=== PATIENT | female | born 2000 | race American Indian/Alaskan Native ===

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

== ENCOUNTER 2019-06-03 10:34 | Emergency (ER) | payer BC ==
[2019-06-03 10:48] VITALS: BP 124/78
[2019-06-03] MEDS ORDERED: ONDANSETRON 4 MG ODT TAB PO ONE (10:48)
--- NOTE | 2019-06-03 11:39 | Emergency Department Report ---
Vomiting/Diarrhea - HPI Chief Complaint: Nausea/Vomiting/Diarrhea Stated Complaint: VOMIT/ADELAIDE/BACK PAIN/COUGH Time Seen by Provider: 06/03/19 11:35 Duration: 1 Day Severity: mild Nausea/Vomiting Severity: Mild Diarrhea Severity: None Pain Location: Generalized Pain Severity: Mild Symptoms: Yes Able to Tolerate Fluids, Yes Recent Unusual Foods (soup vegetable from restaurant), No Watery Diarrhea, No Bloody diarrhea, No Fever, No Recent Untreated Water, No Recent use of Antibiotics, No Family w/ Similar Symptoms, No Contacts w/ Similar Symptoms, No Rash, No Hematuria, No Recent URI Symptoms Other History: This is a 19-year-old female presents to ED complaining of nausea vomiting that began last night. Patient states last night she was at a friend's house and had some vegetable stew that was blood from restaurant. She states that she had been coughing and a couple of days probably beginning of symptoms. Patient states cough and was intermittent nonproductive. Patient states the cough is worse and is causing her to have some shortness of breath. Patient denies any history of asthma ED Review of Systems ROS: Stated complaint: VOMIT/ADELAIDE/BACK PAIN/COUGH Other details as noted in HPI Comment: All other systems reviewed and negative ED Past Medical Hx - Past Medical History Previous Medical History?: No - Surgical History Past Surgical History?: No - Social History Smoking Status: Never Smoker Substance Use Type: Marijuana - Medications Home Medications: Home Medications Medication Instructions Recorded Confirmed Last Taken Type ALBUTEROL Inhaler (OR & NICU) 2 puff IH QID PRN #8.5 gram 06/03/19 Unknown Rx [ProAir HFA Inhaler] Benzonatate [Tessalon Perles] 100 mg PO Q8HR #20 capsule 06/03/19 Unknown Rx Ondansetron [Zofran ODT TAB] 8 mg PO Q12HR #20 tab.rapdis 06/03/19 Unknown Rx Vomiting Diarrhea Exam - Exam General: Vital signs noted. No distress. Alert and acting appropriately. HEENT: Yes Moist Mucous Membranes, No Pharyngeal Erythema, No Pharyngeal Exudates, No Rhinorrhea, No Conjuctival Injection, No Frontal Tenderness, No Maxillary Tenderness Neck: No Adenopathy, No Rigidity Lungs: Yes Clear Lung Sounds, Yes Good Air Exchange, No Wheezes, No Stridor, No Cough, No Nasal Flaring, No Retractions, No Use of Accessory Muscles Heart exam: Regular: Yes, Murmur: No, Tachycardia: No Abdomen: Tenderness: No, Peritoneal Signs: No, Distention: No, Hyperactive Bowel sounds: No Skin exam: Rash: No, Edema: No, Normal turgor: Yes Neurologic: Alert and oriented, no deficits. Musculoskeletal: Unremarkable. ED Course Vital Signs 06/03/19 10:44 Temperature 98.7 F Pulse Rate 85 Respiratory 22 Rate Blood Pressure 124/78 O2 Sat by Pulse 99 Oximetry ED Medical Decision Making - Lab Data Result diagrams: 06/03/19 11:29 06/03/19 11:29 Laboratory Last Values WBC 3.4 K/mm3 (4.5-11.0) L 06/03/19 11:29 RBC 4.86 M/mm3 (3.65-5.03) 06/03/19 11:29 Hgb 14.0 gm/dl (10.1-14.3) 06/03/19 11:29 Hct 40.2 % (30.3-42.9) 06/03/19 11:29 MCV 83 fl (79-97) 06/03/19 11:29 MCH 29 pg (28-32) 06/03/19 11:29 MCHC 35 % (30-34) H 06/03/19 11:29 RDW 14.0 % (13.2-15.2) 06/03/19 11:29 Plt Count 353 K/mm3 (140-440) 06/03/19 11:29 [place] % (Auto) 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 06/03/19 11:29 Add Manual Diff Complete 06/03/19 11:29 Total Counted 100 06/03/19 11:29 Seg Neuts % (Manual) 36.0 % (40.0-70.0) L 06/03/19 11:29 Band Neutrophils % 1.0 % 06/03/19 11:29 Lymphocytes % (Manual) 34.0 % (13.4-35.0) 06/03/19 11:29 Reactive Lymphs % (Man) 4.0 % 06/03/19 11:29 Monocytes % (Manual) 18.0 % (0.0-7.3) H 06/03/19 11:29 Eosinophils % (Manual) 6.0 % (0.0-4.3) H 06/03/19 11:29 Basophils % (Manual) 1.0 % (0.0-1.8) 06/03/19 11:29 Metamyelocytes % 0 % 06/03/19 11:29 Myelocytes % 0 % 06/03/19 11:29 Promyelocytes % 0 % 06/03/19 11:29 Blast Cells % 0 % 06/03/19 11:29 Nucleated RBC % Not Reportable 06/03/19 11:29 Seg Neutrophils # Man 1.2 K/mm3 (1.8-7.7) L 06/03/19 11:29 Band Neutrophils # 0.0 K/mm3 06/03/19 11:29 Lymphocytes # (Manual) 1.2 K/mm3 (1.2-5.4) 06/03/19 11:29 Abs React Lymphs (Man) 0.1 K/mm3 06/03/19 11:29 Monocytes # (Manual) 0.6 K/mm3 (0.0-0.8) 06/03/19 11:29 Eosinophils # (Manual) 0.2 K/mm3 (0.0-0.4) 06/03/19 11:29 Basophils # (Manual) 0.0 K/mm3 (0.0-0.1) 06/03/19 11:29 Metamyelocytes # 0.0 K/mm3 06/03/19 11:29 Myelocytes # 0.0 K/mm3 06/03/19 11:29 Promyelocytes # 0.0 K/mm3 06/03/19 11:29 Blast Cells # 0.0 K/mm3 06/03/19 11:29 WBC Morphology Not Reportable 06/03/19 11:29 Hypersegmented Neuts Not Reportable 06/03/19 11:29 Hyposegmented Neuts Not Reportable 06/03/19 11:29 Hypogranular Neuts Not Reportable 06/03/19 11:29 Smudge Cells Not Reportable 06/03/19 11:29 Toxic Granulation Not Reportable 06/03/19 11:29 Toxic Vacuolation Not Reportable 06/03/19 11:29 Dohle Bodies Not Reportable 06/03/19 11:29 Pelger-Huet Anomaly Not Reportable 06/03/19 11:29 Jono Rods Not Reportable 06/03/19 11:29 Platelet Estimate Consistent w auto 06/03/19 11:29 Clumped Platelets Not Reportable 06/03/19 11:29 Plt Clumps, EDTA Not Reportable 06/03/19 11:29 Large Platelets Not Reportable 06/03/19 11:29 Giant Platelets Not Reportable 06/03/19 11:29 Platelet Satelliting Not Reportable 06/03/19 11:29 Plt Morphology Comment Not Reportable 06/03/19 11:29 RBC Morphology Normal 06/03/19 11:29 Dimorphic RBCs Not Reportable 06/03/19 11:29 Polychromasia Not Reportable 06/03/19 11:29 Hypochromasia Not Reportable 06/03/19 11:29 Poikilocytosis Not Reportable 06/03/19 11:29 Anisocytosis Not Reportable 06/03/19 11:29 Microcytosis Not Reportable 06/03/19 11:29 Macrocytosis Not Reportable 06/03/19 11:29 Spherocytes Not Reportable 06/03/19 11:29 Pappenheimer Bodies Not Reportable 06/03/19 11:29 Sickle Cells Not Reportable 06/03/19 11:29 Target Cells Not Reportable 06/03/19 11:29 Tear Drop Cells Not Reportable 06/03/19 11:29 Ovalocytes Not Reportable 06/03/19 11:29 Helmet Cells Not Reportable 06/03/19 11:29 Emerson-Owings Bodies Not Reportable 06/03/19 11:29 [place] Rings Not Reportable 06/03/19 11:29 Margaret Cells Not Reportable 06/03/19 11:29 Bite Cells Not Reportable 06/03/19 11:29 Crenated Cell Not Reportable 06/03/19 11:29 Elliptocytes Not Reportable 06/03/19 11:29 Acanthocytes (Spur) Not Reportable 06/03/19 11:29 Rouleaux Not Reportable 06/03/19 11:29 Hemoglobin C Crystals Not Reportable 06/03/19 11:29 Schistocytes Not Reportable 06/03/19 11:29 Malaria parasites Not Reportable 06/03/19 11:29 Dwayne Bodies Not Reportable 06/03/19 11:29 Hem Pathologist Commnt No 06/03/19 11:29 Sodium 138 mmol/L (137-145) 06/03/19 11:29 Potassium 4.3 mmol/L (3.6-5.0) 06/03/19 11:29 Chloride 101.4 mmol/L (98-107) 06/03/19 11:29 Carbon Dioxide 21 mmol/L (22-30) L 06/03/19 11:29 Anion Gap 20 mmol/L 06/03/19 11:29 BUN 13 mg/dL (7-17) 06/03/19 11:29 Creatinine 0.6 mg/dL (0.7-1.2) L 06/03/19 11:29 Estimated GFR > 60 ml/min 06/03/19 11:29 BUN/Creatinine Ratio 22 % 06/03/19 11:29 Glucose 85 mg/dL (65-100) 06/03/19 11:29 Calcium 9.8 mg/dL (8.4-10.2) 06/03/19 11:29 Total Bilirubin 0.40 mg/dL (0.1-1.2) 06/03/19 11:29 AST 21 units/L (5-40) 06/03/19 11:29 ALT 15 units/L (7-56) 06/03/19 11:29 Alkaline Phosphatase 88 units/L (35-129) 06/03/19 11:29 Total Protein 7.2 g/dL (6.3-8.2) 06/03/19 11:29 Albumin 4.5 g/dL (3.9-5) 06/03/19 11:29 Albumin/Globulin Ratio 1.7 % 06/03/19 11:29 Urine Color Yellow (Yellow) 06/03/19 11:23 Urine Turbidity Cloudy (Clear) 06/03/19 11:23 Urine pH 6.0 (5.0-7.0) 06/03/19 11:23 Ur Specific [place] 1.031 (1.003-1.030) H 06/03/19 11:23 Urine Protein 30 mg/dl mg/dL (Negative) 06/03/19 11:23 Urine Glucose (UA) Neg mg/dL (Negative) 06/03/19 11:23 Urine Ketones Tr mg/dL (Negative) 06/03/19 11:23 Urine Blood Neg (Negative) 06/03/19 11:23 Urine Nitrite Neg (Negative) 06/03/19 11:23 Urine Bilirubin Neg (Negative) 06/03/19 11:23 Urine Urobilinogen < 2.0 mg/dL (<2.0) 06/03/19 11:23 Ur Leukocyte Esterase Tr (Negative) 06/03/19 11:23 Urine WBC (Auto) 5.0 /HPF (0.0-6.0) 06/03/19 11:23 Urine RBC (Auto) 3.0 /HPF (0.0-6.0) 06/03/19 11:23 U Epithel Cells (Auto) 25.0 /HPF (0-13.0) H 06/03/19 11:23 Urine Bacteria (Auto) 1+ /HPF (Negative) 06/03/19 11:23 Urine Mucus 3+ /HPF 06/03/19 11:23 Urine HCG, Qual Negative (Negative) 06/03/19 11:23 - Radiology Data Radiology results: report reviewed, image reviewed cc: RENEE BUSBY Fluoro Time In Minutes: CHEST 2 VIEWS INDICATION / CLINICAL INFORMATION: cp, cough. Cough for one week with nausea and vomiting for one day. COMPARISON: None available. FINDINGS: SUPPORT DEVICES: None. HEART / MEDIASTINUM: No significant abnormality. LUNGS / PLEURA: No significant pulmonary or pleural abnormality. No pneumothorax. ADDITIONAL FINDINGS: No significant additional findings. IMPRESSION: 1. No acute findings. Signer Name: Lalito Garcia MD Signed: 06/03/2019 1:06 PM Workstation Name: [id number] Transcribed By: DT Dictated By: Ricki Garcia MD Electronically Authenticated By: Ricki Garcia MD Signed Date/Time: 06/03/19 1306 - Medical Decision Making 19-year-old female presents with gastroenteritis Patient received medication in the ED. CBC CMP and urinalysis and test obtained Chest x-ray obtained. Chest x-ray shows report. Vital signs are normal patient is in no acute distress. Discussed f/u with pcp in 3-5 days Critical care attestation.: If time is entered above; I have spent that time in minutes in the direct care of this critically ill patient, excluding procedure time. ED Disposition Clinical Impression: Gastroenteritis Disposition: DC-01 TO HOME OR SELFCARE Is pt being admited?: No Does the pt Need Aspirin: No Condition: Stable Instructions: Gastroenteritis (ED), Acute Nausea and Vomiting (ED), Anxiety (ED) Additional Instructions: Make sure to follow up with the primary care physician as discussed. Take all your medications as you've been prescribed. If you have any worsening symptoms or develop new symptoms please return to ED immediately. Prescriptions: ALBUTEROL Inhaler (OR & NICU) [ProAir HFA Inhaler] 2 puff IH QID PRN #8.5 gram PRN Reason: Shortness Of Breath Benzonatate [Tessalon Perles] 100 mg PO Q8HR #20 capsule Ondansetron [Zofran ODT TAB] 8 mg PO Q12HR #20 tab.rapdis Referrals: [facility] [Outside] - 3-5 Days [facility] [Outside] - 3-5 Days Forms: Work/School Release Form(ED) Time of Disposition: 13:30
[2019-06-03 11:48] LABS: Bacteria,Urine 1+ /HPF (Negative); Bilirubin,Urine NEG (Negative); Blood,Urine NEG (Negative); Color,Urine Yellow (Yellow); Mucus,Urine 3+ /HPF; Urobilinogen,Urine < 2.0 mg/dL (<2.0)
[2019-06-03] MEDS ORDERED: METOCLOPRAMIDE 10 MG TAB PO ONE (12:02)
[2019-06-03] MEDS ORDERED: diphenhydrAMINE 25 MG CAP PO ONE (12:02)
[2019-06-03 12:05] LABS: Hematocrit 40.2 % (30.3-42.9); Mean Corpuscular HGB Conc 35 % (30-34); Mean Corpuscular Volume 83 fl (79-97); Platelet Count 353 K/mm3 (140-440); Red Blood Count 4.86 M/mm3 (3.65-5.03)
[2019-06-03 12:38] LABS: Alanine Aminotransferase 15 units/L (7-56); Albumin 4.5 g/dL (3.9-5); BUN/Creatinine Ratio 22; Blood Urea Nitrogen 13 mg/dL (7-17); Calcium 9.8 mg/dL (8.4-10.2); Hemolysis Index 22
[2019-06-03 12:43] LABS: HCG Qualitative,Urine Negative (Negative)
[2019-06-03 12:50] LABS: Platelet Estimate Consistent w Auto; RBC Morphology Normal; Total Cells Counted 100
--- NOTE | 2019-06-03 13:11 | XRay Report ---
CHEST 2 VIEWS INDICATION / CLINICAL INFORMATION: cp, cough. Cough for one week with nausea and vomiting for one day. COMPARISON: None available. FINDINGS: SUPPORT DEVICES: None. HEART / MEDIASTINUM: No significant abnormality. LUNGS / PLEURA: No significant pulmonary or pleural abnormality. No pneumothorax. ADDITIONAL FINDINGS: No significant additional findings. IMPRESSION: 1. No acute findings. Signer Name: Lalito Garcia MD Signed: 06/03/2019 1:06 PM Workstation Name: [id number]
== END 2019-06-03 13:40 | disposition home or self-care (01) ==
LOC: ED 10:34
DX: K52.9 Noninfective gastroenteritis and colitis, unspecified (principal); F12.10 Cannabis abuse, uncomplicated; Z79.899 Other long term (current) drug therapy; Z91.018 Allergy to other foods
CPT/HCPCS: 36415; 71046; 80053; 81001; 81025; 85007; 85025; Q0162

== ENCOUNTER 2019-06-23 22:16 | Emergency (ER) | payer BC ==
[2019-06-24] MEDS ORDERED: ONDANSETRON 4 MG ODT TAB PO ONE (00:56)
[2019-06-24] MEDS ORDERED: CYCLOBENZAPRINE 10 MG TAB PO ONE (00:56)
[2019-06-24] MEDS ORDERED: IBUPROFEN 800 MG TAB PO ONE (00:56)
[2019-06-24] MEDS ORDERED: predniSONE 20 MG TAB PO ONE (00:56)
--- NOTE | 2019-06-24 01:27 | XRay Report ---
EXAMINATION: Right rib radiograph series with PA chest radiograph, 06/24/2019 CLINICAL INFORMATION: Right rib pain. No history of trauma. COMPARISON: Chest radiograph, 06/03/2019 FINDINGS: No displaced right-sided rib fractures are visualized. The accompanying PA chest radiograph demonstrates no evidence of acute cardiopulmonary process. IMPRESSION: No radiographic evidence of displaced right rib fractures. Signer Name: Carlotta Roman MD Signed: 06/24/2019 1:23 AM Workstation Name: [employer]
[2019-06-24 02:27] LABS: Bacteria,Urine 1+ /HPF (Negative); Bilirubin,Urine NEG (Negative); Blood,Urine NEG (Negative); Color,Urine Yellow (Yellow); Mucus,Urine FEW /HPF; Protein,Urine <15 mg/dL mg/dL (Negative); Urobilinogen,Urine < 2.0 mg/dL (<2.0)
[2019-06-24 02:32] LABS: HCG Qualitative,Urine Negative (Negative)
--- NOTE | 2019-06-24 02:55 | Emergency Department Report ---
ED Back Pain/Injury HPI - General Chief Complaint: Back Pain/Injury Stated Complaint: VOMITING RIB AND SPINE PAIN Source: patient Limitations: No Limitations - History of Present Illness Initial Comments: Patient is a 19-year-old -[place] female in no past medical history presents to the ED recombinant acute onset persistent nasal and sinus congestion, dry cough, right-sided pleuritic chest pain, low back pain, subjective fever and chills, diffuse body aches and pains for the last 2 days. Patient states that her girlfriend has had similar symptoms. Patient denies dizziness, sore throat, abdominal pain, shortness of breath, nausea, vomiting, diarrhea, dysuria, urinary frequency and urgency or vaginal bleeding and syncope MD Complaint: back pain (lower ), other (right rib pain; dry cough; pleuritic chest pain; nasal and sinus congestion) -: Sudden, days(s) (2) Similar Symptoms Previously: Yes Place: home Radiation: none Severity: severe Severity scale (0 -10): 7 Quality: sharp, aching Consistency: constant Improves With: none Worsens With: none Context: unknown Associated Symptoms: denies other symptoms, cough, fever/chills, headaches, loss of appetite, malaise. denies: confusion, weakness, numbness, difficulty urinating, diaphoresis, incontinence, constipation, abdominal pain, nausea/vomiting, rash, seizure, shortness of breath, syncope, other - Related Data Previous Rx's Medication Instructions Recorded Last Taken Type Albuterol INH(or & Nicu Only) 2 puff IH QID PRN #8.5 gram 06/03/19 Unknown Rx [ProAir HFA Inhaler] Benzonatate [Tessalon Perles] 100 mg PO Q8HR #20 capsule 06/03/19 Unknown Rx Ondansetron [Zofran ODT TAB] 8 mg PO Q12HR #20 tab.rapdis 06/03/19 Unknown Rx Azithromycin [Zithromax Z-MARYA] 250 mg PO DAILY #6 tablet 06/24/19 Unknown Rx Benzonatate [Tessalon Perles] 100 mg PO Q8HR #30 capsule 06/24/19 Unknown Rx Cyclobenzaprine [Flexeril] 10 mg PO TID PRN #15 tablet 06/24/19 Unknown Rx Ibuprofen [Motrin] 800 mg PO Q8HR PRN #24 tablet 06/24/19 Unknown Rx methylPREDNISolone [Medrol 4MG 4 mg PO DAILY #21 tab.ds.pk 06/24/19 Unknown Rx DOSEPAK (21 tabs)] Allergies Allergy/AdvReac Type Severity Reaction Status Date / Time [place] And Derivatives Allergy Angioedema Verified 06/03/19 10:36 ED Review of Systems ROS: Stated complaint: VOMITING RIB AND SPINE PAIN Other details as noted in HPI Constitutional: denies: chills, fever Eyes: denies: eye pain, eye discharge, vision change ENT: congestion. denies: ear pain, throat pain Respiratory: cough. denies: shortness of breath, wheezing Cardiovascular: chest pain (right rib pain). denies: palpitations Endocrine: no symptoms reported Gastrointestinal: denies: abdominal pain, nausea, diarrhea Genitourinary: denies: urgency, dysuria, discharge Musculoskeletal: back pain, arthralgia, myalgia. denies: joint swelling Skin: denies: rash, lesions Neurological: headache. denies: weakness, paresthesias Psychiatric: denies: anxiety, depression Hematological/Lymphatic: denies: easy bleeding, easy bruising ED Past Medical Hx - Past Medical History Previous Medical History?: No - Surgical History Past Surgical History?: No - Social History Smoking Status: Current Every Day Smoker Substance Use Type: Marijuana - Medications Home Medications: Home Medications Medication Instructions Recorded Confirmed Last Taken Type Albuterol INH(or & Nicu Only) 2 puff IH QID PRN #8.5 gram 06/03/19 Unknown Rx [ProAir HFA Inhaler] Benzonatate [Tessalon Perles] 100 mg PO Q8HR #20 capsule 06/03/19 Unknown Rx Ondansetron [Zofran ODT TAB] 8 mg PO Q12HR #20 tab.rapdis 06/03/19 Unknown Rx Azithromycin [Zithromax Z-MARYA] 250 mg PO DAILY #6 tablet 06/24/19 Unknown Rx Benzonatate [Tessalon Perles] 100 mg PO Q8HR #30 capsule 06/24/19 Unknown Rx Cyclobenzaprine [Flexeril] 10 mg PO TID PRN #15 tablet 06/24/19 Unknown Rx Ibuprofen [Motrin] 800 mg PO Q8HR PRN #24 tablet 06/24/19 Unknown Rx methylPREDNISolone [Medrol 4MG 4 mg PO DAILY #21 tab.ds.pk 06/24/19 Unknown Rx DOSEPAK (21 tabs)] ED Physical Exam - General Limitations: No Limitations General appearance: alert, in no apparent distress - Head Head exam: Present: atraumatic, normocephalic, normal inspection - Eye Eye exam: Present: normal appearance, PERRL, EOMI Pupils: Present: normal accommodation - ENT ENT exam: Present: normal exam, normal orophraynx, mucous membranes moist, TM's normal bilaterally, normal external ear exam, other (grossly congested nasal passages) - Neck Neck exam: Present: normal inspection, full ROM. Absent: tenderness - Respiratory Respiratory exam: Present: normal lung sounds bilaterally, chest wall tenderness (palpable right lateral rib and chest wall tenderness). Absent: respiratory distress, wheezes, rales, rhonchi, accessory muscle use, decreased breath sounds - Cardiovascular Cardiovascular Exam: Present: regular rate, normal rhythm. Absent: systolic murmur, diastolic murmur, rubs, gallop - GI/Abdominal GI/Abdominal exam: Present: soft, normal bowel sounds. Absent: tenderness, hyperactive bowel sounds - Extremities Exam Extremities exam: Present: normal inspection, full ROM, normal capillary refill - Back Exam Back exam: Present: normal inspection, full ROM, tenderness (palpable lumbosacral paraspinal musculoskeletal tenderness), muscle spasm, paraspinal tenderness - Neurological Exam Neurological exam: Present: alert, oriented X3, CN II-XII intact, normal gait, reflexes normal - Psychiatric Psychiatric exam: Present: normal affect, normal mood - Skin Skin exam: Present: warm, dry, intact, normal color. Absent: rash ED Course Vital Signs 06/23/19 22:25 Temperature 97.9 F Pulse Rate 75 Respiratory 18 Rate Blood Pressure 116/59 O2 Sat by Pulse 99 Oximetry ED Medical Decision Making - Radiology Data Radiology results: report reviewed, image reviewed Right rib and chest x-ray shows no acute rib fractures or any cardiopulmonary abnormalities, pneumonitis, pneumothorax or pleural effusion - Medical Decision Making This is a 19-year-old female who presented to the ED with flulike symptoms characterized by nasal and sinus congestion, pleuritic chest pain, dry cough, low back pain and diffuse body aches and pains for 2 days. In the ED, patient is alert and oriented 3 and is not in distress. Urinalysis is nonactionable and right rib and chest x-ray showed no acute cardiopulmonary abnormalities or pneumonitis or pneumothorax, or pleural effusion. Patient was treated for pain in the ED and discharged home on medications and advised to follow-up with her primary care physician in 7-10 days for reevaluation or return to the ED immediately if symptoms get worse. - Differential Diagnosis Flu like; URI; Bronchitis; Pneumonia; UTI Critical care attestation.: If time is entered above; I have spent that time in minutes in the direct care of this critically ill patient, excluding procedure time. ED Disposition Clinical Impression: Spasm of muscle of lower back, Acute upper respiratory infection Acute bronchitis Qualifiers: Bronchitis organism: other organism Qualified Code(s): J20.8 - Acute bronchitis due to other specified organisms Muscle strain of chest wall Qualifiers: Encounter type: initial encounter Qualified Code(s): S29.011A - Strain of muscle and tendon of front wall of thorax, initial encounter Disposition: TO HOME OR SELFCARE Is pt being admited?: No Does the pt Need Aspirin: No Condition: Stable Instructions: Acute Bronchitis (ED), Muscle Strain (ED), Muscle Spasm (ED), Upper Respiratory Infection (ED) Additional Instructions: Take medications with food, drink plenty of fluids and follow up with your primary care physician in 5-7 days for reevaluation. Return to ED immediately if symptoms get worse. Prescriptions: Cyclobenzaprine [Flexeril] 10 mg PO TID PRN #15 tablet PRN Reason: Muscle Spasm methylPREDNISolone [Medrol 4MG DOSEPAK (21 tabs)] 4 mg PO DAILY #21 tab.ds.pk Ibuprofen [Motrin] 800 mg PO Q8HR PRN #24 tablet PRN Reason: Pain , Severe (7-10) Benzonatate [Tessalon Perles] 100 mg PO Q8HR #30 capsule Azithromycin [Zithromax Z-MARYA] 250 mg PO DAILY #6 tablet Referrals: [facility] [Outside] - 3-5 Days Forms: Work/School Release Form(ED) Time of Disposition: 02:55 Print Language: YEMENI
[2019-06-24 03:17] VITALS: BP 118/67
== END 2019-06-24 03:05 | disposition home or self-care (01) ==
LOC: ED 22:16
DX: S29.011A Strain of muscle and tendon of front wall of thorax, initial encounter (principal); M62.830 Muscle spasm of back; J06.9 Acute upper respiratory infection, unspecified; J20.9 Acute bronchitis, unspecified; F12.10 Cannabis abuse, uncomplicated; F17.200 Nicotine dependence, unspecified, uncomplicated; Z91.018 Allergy to other foods; X58.XXXA Exposure to other specified factors, initial encounter; Y93.89 Activity, other specified; Y92.89 Other specified places as the place of occurrence of the external cause; Y99.8 Other external cause status
CPT/HCPCS: 71101; 81001; 81025; 99284; J7512; Q0162

== ENCOUNTER 2021-02-01 11:02 | Emergency (ER) | payer BC ==
[2021-02-01 13:15] VITALS: BP 116/70
[2021-02-01] MEDS ORDERED: SODIUM CHLORIDE IRRI 500 ML 500 ML IR ONE (22:47)
== END 2021-02-01 15:00 | disposition left against medical advice (07) ==
LOC: ED 11:02
DX: R52 Pain, unspecified (principal); Z53.21 Procedure and treatment not carried out due to patient leaving prior to being seen by health care provider

== ENCOUNTER 2021-02-24 21:15 | Emergency (ER) | payer SELFPAY | END 2021-02-25 05:23 | disposition home or self-care (01) | LOC: ED 21:15 | DX: Z00.8 Encounter for other general examination (principal); Z53.21 Procedure and treatment not carried out due to patient leaving prior to being seen by health care provider ==

== ENCOUNTER 2021-03-01 08:56 | Emergency (ER) | payer SELFPAY ==
[2021-03-01] MEDS ORDERED: IPRATROPIUM/ALBUTEROL SULFATE 3 ML AMPUL.NEB IH ONE (10:14)
[2021-03-01] MEDS ORDERED: FAMOTIDINE 20 MG TAB PO ONE (10:14)
[2021-03-01] MEDS ORDERED: predniSONE 20 MG TAB PO ONE (10:14)
[2021-03-01] MEDS ORDERED: diphenhydrAMINE 25 MG CAP PO ONE (10:14)
--- NOTE | 2021-03-01 10:14 | Emergency Department Report ---
HPI - General Chief Complaint: Allergic Reaction - HPI HPI: 20-year-old female with a past medical history of asthma and allergic reactions to stitches presents to the hospital complaining of allergic symptoms for the last 2 days secondary to citrus exposure. Patient is having shortness of breath, intermittent dry cough, feeling dizzy. Yesterday she had throat tightness which resolved with drinking tea. She complains of intermittent wheezing but does not currently have any albuterol due to lack of insurance. Patient denies fever, loss of sense of taste or smell, or known Covid exposure. Patient complains of continued chest tightness and coughing with deep inspiration. Patient did take an allergy medication yesterday but did not take any meds today. In the past patient has had more severe reaction to states she was exposed to requiring immediate hospital visit ED Past Medical Hx - Past Medical History Previous Medical History?: Yes Hx Asthma: Yes - Social History Smoking Status: Current Every Day Smoker Substance Use Type: Marijuana - Medications Home Medications: Home Medications Medication Instructions Recorded Confirmed Last Taken Type Albuterol Mdi (or & Nicu Only) 2 puff IH QID PRN #8.5 gram 06/03/19 Unknown Rx [ProAir HFA Inhaler] Benzonatate [Tessalon Perles] 100 mg PO Q8HR #20 capsule 06/03/19 Unknown Rx Ondansetron [Zofran ODT TAB] 8 mg PO Q12HR #20 tab.rapdis 06/03/19 Unknown Rx Azithromycin [Zithromax Z-MARYA] 250 mg PO DAILY #6 tablet 06/24/19 Unknown Rx Benzonatate [Tessalon Perles] 100 mg PO Q8HR #30 capsule 06/24/19 Unknown Rx Cyclobenzaprine [Flexeril] 10 mg PO TID PRN #15 tablet 06/24/19 Unknown Rx Ibuprofen [Motrin] 800 mg PO Q8HR PRN #24 tablet 06/24/19 Unknown Rx methylPREDNISolone [Medrol 4MG 4 mg PO DAILY #21 tab.ds.pk 06/24/19 Unknown Rx DOSEPAK (21 tabs)] Albuterol Sulfate [Proventil Hfa] 6.7 gm IH Q4HR PRN #1 hfa.aer.ad 03/01/21 Unknown Rx EPINEPHrine [Epipen] 0.3 mg IJ ONCE.ED PRN #1 auto.injct 03/01/21 Unknown Rx Famotidine [Pepcid] 20 mg PO BID #10 tablet 03/01/21 Unknown Rx diphenhydrAMINE [Benadryl CAP] 1 - 2 tab PO Q6HR PRN #20 capsule 03/01/21 Unknown Rx predniSONE [Deltasone] 40 mg PO QDAY 5 Days tab 03/01/21 Unknown Rx ED Review of Systems ROS: Stated complaint: ALLERGIC REACTION/SOB/DIZZY Other details as noted in HPI Physical Exam - Physical Exam Vital Signs: Vital Signs 03/01/21 08:59 Temperature 97.7 F Pulse Rate 83 Respiratory 16 Rate Blood Pressure 119/73 [Left] O2 Sat by Pulse 98 Oximetry Physical Exam: General: No acute distress Head: Atraumatic Eyes: normal appearance ENT: Moist mucous membranes, no posterior pharyngeal edema, no tongue edema Neck: Normal appearance, no midline tenderness Chest: Clear to auscultation bilaterally, cough with deep inspiration CV: Regular rate and rhythm Abdomen: Soft, normal bowel sounds, nontender, nondistended, no rebound or guarding Back: Normal inspection Extremity: Normal inspection, full range of motion Neuro: Alert O x 3, no facial asymmetry, speech clear, no gross motor sensory deficit Psych: Appropriate behavior Skin: No rash ED Course Vital Signs 03/01/21 08:59 Temperature 97.7 F Pulse Rate 83 Respiratory 16 Rate Blood Pressure 119/73 [Left] O2 Sat by Pulse 98 Oximetry - Reevaluation(s) Reevaluation #1: 03/01/21 11:13 Patient feeling better ED treatment. ED Medical Decision Making - EKG Data -: EKG Interpreted by Me EKG shows normal: sinus rhythm, ST-T waves (Non-STEMI) Rate: normal (67) - Medical Decision Making 20-year-old female presents to the hospital symptoms of mild allergic reaction with mild asthma/bronchospasm with deep inspiration. Patient received treatment with Benadryl, Pepcid, prednisone, and albuterol with improvement. Patient states she feels well enough to be discharged upon completion of treatment. Critical Care Time: No Critical care attestation.: If time is entered above; I have spent that time in minutes in the direct care of this critically ill patient, excluding procedure time. ED Disposition Clinical Impression: Allergic reaction, Mild asthma Disposition: 01 HOME / SELF CARE / HOMELESS Is pt being admited?: No Does the pt Need Aspirin: No Condition: Stable Instructions: Asthma (ED), Asthma, Adult, Allergies, Adult, Cough, Adult Additional Instructions: Take the medication as prescribed. Follow-up with your doctor or doctor/clinic provided. Return if symptoms worsen as indicated by your discharge instructions. Prescriptions: diphenhydrAMINE [Benadryl CAP] 1 - 2 tab PO Q6HR PRN #20 capsule PRN Reason: Allergic Reaction predniSONE [Deltasone] 40 mg PO QDAY 5 Days tab EPINEPHrine [Epipen] 0.3 mg IJ ONCE.ED PRN #1 auto.injct PRN Reason: Anaphylaxis Famotidine [Pepcid] 20 mg PO BID #10 tablet Albuterol Sulfate [Proventil Hfa] 6.7 gm IH Q4HR PRN #1 hfa.aer.ad PRN Reason: Wheezing Referrals: PRIMARY CAREMD [Primary Care Provider] - 3-5 Days [facility] [Provider Group] - 3-5 Days FLOR MON MD [Staff Physician] - 3-5 Days Time of Disposition: 11:18
[2021-03-01 11:29] VITALS: BP 110/74
--- NOTE | 2021-03-01 13:38 | Electrocardiograph Report ---
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
== END 2021-03-01 11:29 | disposition home or self-care (01) ==
LOC: ED 08:56
DX: T78.40XA Allergy, unspecified, initial encounter (principal); J45.909 Unspecified asthma, uncomplicated; F17.200 Nicotine dependence, unspecified, uncomplicated; F12.90 Cannabis use, unspecified, uncomplicated; Z91.018 Allergy to other foods; Z79.899 Other long term (current) drug therapy; X58.XXXA Exposure to other specified factors, initial encounter
CPT/HCPCS: 93005; 94640; 99282; J7512; 94644